=== PATIENT | female | born 1960 | race Caucasian/White ===

== ENCOUNTER → 2023-01-27 14:46 | Outpatient (REF) | payer OTHER, SELFPAY ==
--- NOTE | 2023-01-27 14:54 | CA_ITS ---
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 The visually estimated ejection fraction is between 60-65%. - There is mild tricuspid valve regurgitation. - There is no evidence of pulmonary hypertension. Findings Left Ventricle Normal left ventricular cavity size. There is normal left ventricular wall thickness. The left ventricular systolic function is normal. The visually estimated ejection fraction is between 60-65%. There is no evidence of regional wall motion abnormalities. Diastolic function is normal for age. LV peak GLS 20.1% (normal). Right Ventricle Normal right ventricular cavity size and systolic function. Atria Both atria are normal in size. Aortic Valve There is a normal trileaflet aortic valve. There is no aortic valve stenosis. There is no aortic valve regurgitation. Mitral Valve The mitral valve appears normal. There is no mitral valve regurgitation. There is no mitral valve stenosis. Pulmonic Valve The pulmonic valve is likely normal. Tricuspid Valve There is mild tricuspid valve regurgitation. There is no evidence of pulmonary hypertension. Great Vessels The asc aorta is normal in size. Venous The inferior vena cava is normal in size and collapses greater than 50% with inspiration. Pericardium/Pleural There is no evidence of pericardial effusion. Prior Study Comparison No prior study available for comparison. Measurements 2D Linear Measurements IVSd: 0.88 0.6-0.9/0.6-1.0 cm LVIDd: 4.24 3.9-5.3/4.2-5.9 cm LVIDd Index: 2.55 2.4-3.2/2.2-3.1 cm/m2 LVIDs: 2.79 2.0-3.6 cm LVPWd: 0.67 0.7-1.1 cm LA Diam: 3.30 2.7-3.8/3.0-4.0 cm LAIDs Index: 1.99 1.5-2.3 cm/m2 LV Mass: 122.28 67-162/88-224 g LV Mass Index: 73.66 43-95/49-115 g/m2 LVOT Diam: 2.00 3.0+(-)1.3 cm 2D Volumes LA Vol: 17.20 2D Systolic Function EF Teich: 64.00 >55% EF 2C: 69.90 >55% Mitral Valve MV Pk E: 0.79 MV PK A: 0.64 MV Decel Time: 157.00 E/A: 1.20 E'Lateral: 8.92 E'Medial: 7.40 E/E' Med: 10.70 E/E' Lat: 8.90 PHT: 46.00 MVA PHT: 4.78 Decel Schuyler: 5.06 Aortic Valve AoV Pk Kwadwo: 1.30 AoV Mn Kwadwo: 0.89 AoV VTI: 0.26 AoV Pk Grad: 7.00 Aov Mn Grad: 4.00 TIEN Cont.VTI: 2.41 LVOT LVOT Pk Kwadwo: 1.15 LVOT Mn Kwadwo: 0.69 LVOT VTI: 0.20 LVOT Pk Grad: 5.00 LVOT Mn Grad: 2.00 LVOT Diam: 2.00 LVOT Area: 3.14 Diastolic Function MV Pk E: 0.79 MV Pk A: 0.64 E/A: 1.20 E'Medial: 7.40 E/E' Med: 10.70 E' Laterial: 8.92 E/E' Lat: 8.90 Right Ventricle TAPSE (mm): 24.40 TVS' Kwadwo: 11.60 Tricuspid Valve TR Pk Kwadwo: 2.32 TR Pk Grad: 22.00 RA Press: 3.00 RVSP: 25.00 Great Vessels Aorta Sinus of Valsalva: 2.80 2.0-3.5 cm Ao Asc: 3.00 2.1-3.4 cm Pulmonary Veins Pulm Vein S/D 1.40 Pulmonary Valve PV Pk Kwadwo: 0.84 Peak PV Grad: 3.00 Updated in Other Vendor System with Status of Final Shlomo Maldonado MD electronically signed on 01/28/2023 9:52:06 AM with status of Final
== END ==
LOC: HO.CARD 14:46
PROVIDERS: PCP Family Medicine; Visit Provider Internal Medicine Pulmonary Disease
DX: I27.20 Pulmonary hypertension, unspecified (principal)
CPT/HCPCS: 93306; 93356